=== PATIENT | female | born 1980 | race Caucasian/White ===

== ENCOUNTER 2018-02-13 16:41 | Emergency (ER) | payer BC ==
[~2018-02-13] VITALS: Ht 157.5 cm; Wt 79.8 kg
[2018-02-13 16:49] VITALS: Ht 157.5 cm; Wt 79.8 kg
[2018-02-13 17:16] LABS: BASOPHIL % 0.5 % (0-2); PLATELET COUNT 241 x10^3mcL (130-400); RED CELL DISTRIBUTION WIDTH 13.1 % (11.5-14.5)
[2018-02-13 17:25] LABS: CALCIUM 7.7 mg/dL (8.5-10.1); CHLORIDE SERUM 103 mmol/L (98-107); CREATININE SERUM 0.9 mg/dL (0.6-1.0); GFR1 > 60 mL/min; GLUCOSE SERUM 152 mg/dL (74-106); POTASSIUM SERUM 3.3 mmol/L (3.5-5.1); SODIUM SERUM 137 mmol/L (136-145)
[2018-02-13 17:29] LABS: ALKALINE PHOSPHATASE 49 U/L (46-116); ALT/SGPT 62 U/L (14-59); AST/SGOT 52 U/L (15-37); BILIRUBIN TOTAL 0.5 mg/dL (0.20-1.00); MAGNESIUM 1.6 mg/dL (1.8-2.4); TOTAL PROTEIN, SERUM 7.2 g/dL (6.4-8.2)
[2018-02-13 17:38] LABS: ALBUMIN 3.3 g/dL (3.4-5.0)
[2018-02-13 17:40] LABS: FREE T4 0.97 ng/dL (0.76-1.46); FREE THYROXINE INDEX 2.6 ug/dL (1.4-4.5); T4(THYROXINE) 7.9 ug/dL (4.7-13.3)
[2018-02-13 17:52] LABS: T3 TOTAL 1.19 ng/mL
[2018-02-13 18:52] LABS: AMPHETAMINE QUAL UR NONE DETECTED (See below)
[2018-02-13 20:53] VITALS: BP 116/77
== END 2018-02-13 20:53 | disposition home or self-care (01) ==
LOC: ED 16:41
PROVIDERS: Emergency Medicine
DX: E87.6 Hypokalemia (principal); E83.42 Hypomagnesemia
CPT/HCPCS: 84439; J0153; J3475; Q0092